=== PATIENT | male | born 1970 | race Caucasian/White ===

== ENCOUNTER 2023-10-30 11:13 | Observation (INO) | payer OTHER ==
[~2023-10-30] VITALS: Ht 175.3 cm; Wt 69.4 kg
[2023-10-30] VITALS (12 sets, daily range): BP systolic 117–152; BP diastolic 79–107
[2023-10-30] MEDS ORDERED: MULTIPLE VITAMIN 10 ML,THIAMINE HCL 100 MG in DEXTROSE 5% / 0.9% NACL 1,000 ML IV ONE (11:20)
[2023-10-30 11:56] LABS: BASO% 0.7 % (0-3); EOS% 0.3 % (0-8); HEMATOCRIT 45.2 % (39.0-50.0); HEMOGLOBIN 15.1 g/dl (14.0-18.0); IMMATURE GRANULOCYTES 0.1 % (0.0-5.0); LYMPH% 24.7 % (15-41); MEAN CELL VOLUME 103.2 fL CALC (80.0-100.0); MEAN CORPUSCULAR HGB 34.5 pG CALC (26.0-32.0); MEAN CORPUSCULAR HGB CONC 33.4 g/dL CAL (32.0-36.0); MONO% 12.2 % (2-13); NEUT# 4.28 thou/uL (1.82-7.42); RED BLOOD COUNT 4.38 mill/uL (4.70-6.10); RED CELL DISTRI WIDTH 12.1 % (11.5-15.5)
--- NOTE | 2023-10-30 12:00 | NUR ---
DR. LAM SPOKE WITH THE PATIENT AND DISCUSSED ADMISSION TO THE HOSPITAL. PATIENT AGREED TO STAY.
[2023-10-30 12:06] LABS: ALBUMIN 4.6 g/dL (3.2-5.0); ALKALINE PHOSPHATASE 69 u/l (38-126); ANION GAP 14 (6-22 (CALC)); BILIRUBIN, TOTAL 0.6 mg/dL (0.2-1.3); BUN 6 mg/dL (9-20); BUN/CREATININE RATIO 8 (12-20 (CALC)); CARBON DIOXIDE 27 mmol/l (22-30); CHLORIDE 103 mmol/l (95-108); CREATININE 0.8 mg/dL (0.7-1.3); GFR FOR AFR.AMER. > 60 ML/MIN (>=60 (CALC)); GFR OTHER RACES > 60 ML/MIN (>=60 (CALC)); POTASSIUM 4.3 mmol/l (3.5-5.1); SGOT/AST 55 u/l (17-59); SODIUM 139 mmol/l (137-146); TOTAL PROTEIN 7.6 g/dL (6.3-8.2)
[2023-10-30 12:08] LABS: ETHYL ALCOHOL 246 mg/dl (0-30)
--- NOTE | 2023-10-30 12:16 | NUR ---
PT REQ SOMETHING TO EAT JUICE AND PUDDING GIVEN PER NURSE.
[2023-10-30 12:40] LABS: TSH, 3RD GENERATION 1.35 uIU/mL (0.47 - 4.68)
[2023-10-30] MEDS ORDERED: LYRICA100 MG PO (13:45)
--- NOTE | 2023-10-30 13:50 | NUR ---
PATIENT RESTING. NO DISTRESS. PATIENT COOPERATIVE WITH STAFF.
[2023-10-30] MEDS ORDERED: MAGNESIUM HYDROXIDE 30 ML UDC PO PRN (14:05)
[2023-10-30] MEDS ORDERED: LACTATED RINGER'S 1,000 ML IV PRN (14:05)
[2023-10-30] MEDS ORDERED: chlordiazePOXIDE HCL 25 MG CAP PO PRN (14:05)
[2023-10-30] MEDS ORDERED: ACETAMINOPHEN 325 MG/TAB PO PRN (14:05)
[2023-10-30] MEDS ORDERED: MIDAZOLAM HCL 2 MG/2 ML VIAL IV PRN (14:30)
[2023-10-30] MEDS ORDERED: LORazepam 0.5 MG/TAB PO SCH (14:30)
[2023-10-30] MEDS ORDERED: MIDAZOLAM HCL 2 MG/2 ML VIAL IM PRN (14:35)
--- NOTE | 2023-10-30 14:41 | NUR ---
LIBRIUM AND ATIVAN ADMINISTERED TO THE PATIENT. PATIENT RESTING. NO DISTRESS.
--- NOTE | 2023-10-30 15:46 | NUR ---
MEDICATION HAD GOOD EFFECT. PATIENT SLEEPING. BANANA BAG COMPLETED. BED ASSIGNED IN THE ICU. AWAITNG ROOM TO BE READY.
--- NOTE | 2023-10-30 16:26 | NUR ---
VERBAL REPORT GIVEN TO CHARLES MCWILLIAMS RN. PATIENT TAKEN TO ICU AT THIS TIME.
--- NOTE | 2023-10-30 19:42 | NUR ---
Recieved report for this patient and in bed with eyes open. Vomiting noted. Dr. Montemayor was called and will place order for Zofran to be administered as needed. Alert and oriented and able to make needs known. Respirations even and non-labored. Will continue to observe.
[2023-10-30] MEDS ORDERED: ONDANSETRON HCl 4 MG/2 ML SDV IV PRN (19:45)
[2023-10-30] MEDS ORDERED: ENOXAPARIN SODIUM 40 MG/0.4 ML SYR SC SCH (21:00)
--- NOTE | 2023-10-31 | NUR ---
PT IN BED WITH EYES OPEN AND ABLE TO VERBALIZE NEEDS. CONTINENT OF B/B AND ABLE TO TRANSFER SELF TO TOILET WITH STANDBY ASSIST. RESPIRAION EVEN AND NONLABORED. CALL LIGHT WITHIN REACH. WILL CONTINUE TO OBSERVE
--- NOTE | 2023-10-31 04:00 | NUR ---
PT IN BED WITH EYES CLOSED AND NO S/S OF DISTRESS/DICOMFORT. LACTATED RINGERS RUNNING AT 100ML/HR AND TOLERATING WELL. CIWA COMPLETED. ABLE TO VERBALIZE NEEDS AND CALL LIGHT WITHIN REACH. WILL CONTINUE TO OBSERVE
[2023-10-31 07:05] LABS: BASO% 0.7 % (0-3); EOS% 0.8 % (0-8); HEMOGLOBIN 13.2 g/dl (14.0-18.0); IMMATURE GRANULOCYTES 0.1 % (0.0-5.0); LYMPH% 21.1 % (15-41); MEAN CORPUSCULAR HGB 35.1 pG CALC (26.0-32.0); MEAN CORPUSCULAR HGB CONC 33.8 g/dL CAL (32.0-36.0); MONO% 10.1 % (2-13); NEUT# 6.03 thou/uL (1.82-7.42); NEUT% 67.2 % (42-76); RED BLOOD COUNT 3.76 mill/uL (4.70-6.10)
[2023-10-31 07:19] LABS: HEMATOCRIT 39.1 % (39.0-50.0)
[2023-10-31 07:23] LABS: ALKALINE PHOSPHATASE 71 u/l (38-126); ANION GAP 8 (6-22 (CALC)); BUN 5 mg/dL (9-20); BUN/CREATININE RATIO 6 (12-20 (CALC)); CARBON DIOXIDE 26 mmol/l (22-30); CHLORIDE 107 mmol/l (95-108); CREATININE 0.9 mg/dL (0.7-1.3); GFR FOR AFR.AMER. > 60 ML/MIN (>=60 (CALC)); GFR OTHER RACES > 60 ML/MIN (>=60 (CALC)); POTASSIUM 4.2 mmol/l (3.5-5.1); SGOT/AST 65 u/l (17-59); SODIUM 137 mmol/l (137-146)
[2023-10-31 07:25] LABS: ALBUMIN 3.6 g/dL (3.2-5.0); BILIRUBIN, TOTAL 1.2 mg/dL (0.2-1.3)
--- NOTE | 2023-10-31 08:19 | NUR ---
PATIENT SITTING UP IN BED. STATES HE IS UNABLE TO EAT BREAKFAST D/T STOMACH PAIN OF A 5. DECLINES PAIN RELIEF MEASURES AT THIS TIME. ALERT AND ORIENTED X 3. LUNGS DIMINISHED/WHEEZES NOTED TO ASCULTATION. BREATHING EVEN AND UNLABORED ON ROOM AIR. CIWA SCORE OF 5 (SEE INTERVENTIONS). 18G LH FLUSHES WELL. AFEBRILE. SAFETY MEASURES IN PLACE INCLUDING BED IN LOW POSITION AND CALL LIGHT RESTING IN R HAND. NO APPARENT DISTRESS NOTED. WILL CONTINUE WITH PLAN OF CARE. PATIENT STATES HE IS LIVING ALONE RIGHT NOW BECAUSE HIS IS IN [place] "SUPPORTING HER DAUGHTER".
[2023-10-31] MEDS ORDERED: MULTIPLE VITAMIN 10 ML,THIAMINE HCL 100 MG in DEXTROSE 5% / 0.9% NACL 1,000 ML IV SCH (09:00)
[2023-10-31] MEDS ORDERED: PREGABALIN 75 MG/CAP PO SCH (09:00)
--- NOTE | 2023-10-31 10:24 | NUR ---
DR. LLOYD ROUNDCLAY AT BEDSIDE TO DISCUSS PLAN OF CARE. PATIENT VOICED CONCERNS ABOUT NAUSEA/DRY HEAVING. PATIENT POSSIBLY DISCHARGED 11/01.
--- NOTE | 2023-10-31 12:00 | NUR ---
PATIENT APPEARS TO BE RESTING. NO APPARENT DISTRESS NOTED. SAFETY MEASURES IN PLACE. WILL CONTINUE TO MONITOR.
--- NOTE | 2023-10-31 14:22 | NUR ---
PATIENT LYING IN BED. DENIES ANY PAIN. PATIENT DOWNGRADED RESTING TO BE REMOVED FROM MONITOR, REQUEST GRANTED.
[2023-10-31] MEDS ORDERED: LIBRIUM25 MG PO (15:20)
--- NOTE | 2023-10-31 16:14 | NUR ---
PATIENT REQUESTING TO BE DISCHARGED TODAY INSTEAD OF 11/01. PROVIDER TO BE NOTIFIED. NO ADDITONAL ISSUES OR CONCERNS AT THIS TIME. WILL CONTINUE WITH PLAN OF CARE.
--- NOTE | 2023-10-31 17:40 | NUR ---
Discharge instructions given. Patient verbalizes understanding of same. Discharged in stable condition via Wheelchair to Home with *Other. All belongings sent with pt.
== END 2023-10-31 17:39 | disposition home or self-care (01) | DRG 897 ==
LOC: ED 11:13 → ED-I 12:56 → ED 13:20 → ICU 13:21
PROVIDERS: Family Medicine; ADMIT Student in an Organized Health Care Education/Training Program; ATTEND Student in an Organized Health Care Education/Training Program
DX: F10.139 Alcohol abuse with withdrawal, unspecified (principal); Y90.8 Blood alcohol level of 240 mg/100 ml or more; Z20.822 Contact with and (suspected) exposure to COVID-19
CPT/HCPCS: J1650

== ENCOUNTER 2024-05-19 13:22 | Emergency (ER) | payer OTHER ==
[~2024-05-19] VITALS: Ht 175.3 cm; Wt 74.0 kg
[~2024-05-19 13:22] MED LIST: LIBRIUM25 MG PO; LYRICA100 MG PO
[2024-05-19 13:29] VITALS: BP 100/71
[2024-05-19 13:30] VITALS: BP 115/77
[2024-05-19] MEDS ORDERED: CARBAMIDE PEROXIDE 6.5 % BTL AS ONE (13:35)
[2024-05-19] MEDS ORDERED: ZYRTEC10 MG PO (13:50)
[2024-05-19] MEDS ORDERED: AMOXICILLIN875 MG PO (13:50)
[2024-05-19 14:00] VITALS: BP 102/72
[2024-05-19 14:19] VITALS: BP 102/72
== END 2024-05-19 14:20 | disposition home or self-care (01) | DRG 156 ==
LOC: ED 13:22
PROC: 3E1B78Z Irrigation of Ear using Irrigating Substance, Via Natural or Artificial Opening (ICD-10-PCS; principal; 2024-05-19)
DX: H61.22 Impacted cerumen, left ear (principal); H66.91 Otitis media, unspecified, right ear; I10 Essential (primary) hypertension; F10.10 Alcohol abuse, uncomplicated; Z72.0 Tobacco use